=== PATIENT | female | born 1970 | race American Indian/Alaskan Native ===

== ENCOUNTER 2019-03-03 12:30 | Emergency (ER) | payer MEDICAID, MEDICARE ==
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
[2019-03-03] MEDS ORDERED: Ketorolac 30 MG/ML SDV IVPUSH ONE (13:21)
--- NOTE | 2019-03-03 13:41 | CRLCR ---
INDICATION: Shortness breath COMPARISON: Two view chest dated 09/03/2013. TECHNIQUE: Two view chest. FINDINGS: The lungs are clear. There is no evidence pneumothorax. The heart, mediastinum and pulmonary vessels are of normal size. There is no evidence of pleural fluid. IMPRESSION: Negative chest. Dictated by Jean Muniz MD @ 03/03/2019 1:39:22 PM Dictated by: Jean Muniz MD @ 03/03/2019 13:39:30 (Electronically Signed)
== END 2019-03-03 14:02 | disposition home or self-care (01) ==
LOC: JP.ED 12:30
DX: S23.8XXA Sprain of other specified parts of thorax, initial encounter (principal); F17.210 Nicotine dependence, cigarettes, uncomplicated; W01.198A Fall on same level from slipping, tripping and stumbling with subsequent striking against other object, initial encounter
CPT/HCPCS: 71046; 96374; 99285; J1885